=== PATIENT | female | born 1980 | race Caucasian/White ===

== ENCOUNTER 2020-07-27 14:54 | Emergency (ER) | payer OTHER, SELFPAY ==
[2020-07-27 15:24] VITALS: BP 142/79; PULSE 79; RESP 18; TEMP 36.9; O2SAT 98
--- NOTE | 2020-07-27 15:28 | ED.DENTAL ---
HPI - Dental/Oral General Chief complaint: Dental/Oral Stated complaint: dental pain Time Seen by Provider: 07/27/20 15:25 Source: patient Mode of arrival: ambulatory Limitations: no limitations History of Present Illness MD Complaint: tooth pain Teeth map: 1. severe decay/29 partially chip Onset (ago): day(s) Severity: moderate Relieving factors: NSAIDs Exacerbating factors: chewing Treatment prior to arrival: none Related Data Previous Rx's Medication Instructions Recorded ibuprofen 800 mg PO Q8H PRN #30 tab 07/27/20 penicillin V potassium 500 mg PO Q8H #30 tab 07/27/20 Allergies Allergy/AdvReac Type Severity Reaction Status Date / Time No Known Allergies Allergy Unverified 06/22/20 14:38 Review of Systems Review of Systems: Constitutional: No Weight loss, No Fever, No Chills, No Night Sweats, No Fatigue, No Malaise ENT/Mouth: No Hearing loss, No Ear Pain, No Nasal Congestion, No Sinus Pain, No Hoarseness, No sore throat, No Rhinorrhea, No Swallowing Difficulty Eyes: No Eye Pain, No Swelling, No Redness, No Foreign Body, No Discharge, No Vision Changes Cardiovascular: No Chest Pain, No SOB Respiratory: No Cough, No Sputum, No Wheezing, No Smoke Exposure, No Dyspnea Gastrointestinal: Skin: No Skin Lesions, No rash Neuro: No Weakness, No Numbness, No Paresthesias, No Loss of Consciousness, No Dizziness, No Headache Psych:No Social Issues Heme/Lymph: No Bruising, No Bleeding,No Lymphadenopathy Endocrine: No Polyuria, No Polydipsia, No Temperature Intolerance Yes all other systems are reviewed and are negative [facility] Past Medical History Attestation statement: The following information was validated with the patient. Medical History (Updated 07/27/20 @ 15:39 by Sonal Boggs) Anxiety delivery delivered Social History Social History Smoking Status: Current every day smoker Use of substances other than those prescribed or required for medical reasons: No Advance Directives: No Advance Directives Information Provided: No Physical Exam Vital Signs: Vital Signs: Vital Signs Temp Pulse Resp BP Pulse Ox 07/27/20 15:24 98.4 F 79 18 142/79 H 98 reviewed MDM - Dental/Oral Differential Diagnosis Differential diagnosis: Likely dental caries, toothache and fracture of tooth; Unlikely gingival abscess, dental abscess and aphthous ulcer Medical Records Attestation: I reviewed the patient's medical records. Discharge Plan Discharge Clinical Impression: Dental caries Patient Disposition: Home, Self-Care Instructions: Toothache (ED) Additional Instructions: You have multiple partially eroded teeth on the right lower molar side that need to be evaluated by dentist You have a partial chipped teeth as well that needs to be removed At this moment there is no signs of an abscess. [place] diet Chew on a good sign Tylenol/ alternate with Motrin per label instructions for pain and discomfort Antibiotics as prescribed Topical Orajel as reviewed Return if any concerns or worse symptoms otherwise call the dentist today to make an appointment the next few days for further evaluation treatment Thank you Prescriptions: New ibuprofen 800 mg tablet 800 mg PO Q8H PRN (Reason: pain) Qty: 30 RF: 0 penicillin V potassium 500 mg tablet 500 mg PO Q8H Qty: 30 RF: 0 Referrals: Physician,Unknown [Physician] - 2 days (dental )
[2020-07-27 15:35] VITALS: BP 142/79; PULSE 79; RESP 18; TEMP 37.1; O2SAT 98; BMI 27.6
== END 2020-07-27 15:51 | disposition home or self-care (01) ==
PROVIDERS: Emergency Provider Emergency Medicine
DX: K02.9 Dental caries, unspecified (principal)
CPT/HCPCS: 99283; 99284